=== PATIENT | male | born 1975 | race Caucasian/White ===

== ENCOUNTER 2018-12-18 15:35 | Emergency (ER) | payer OTHER ==
[~2018-12-18] VITALS: Ht 182.9 cm; Wt 131.5 kg
[2018-12-18] MEDS ORDERED: INVEGA3 MG PO (15:53)
[2018-12-18] MEDS ORDERED: METFORMIN HCL500 MG PO (15:53)
[2018-12-18] MEDS ORDERED: PRINIVIL20 MG PO (15:53)
[2018-12-18] MEDS ORDERED: LIPITOR 20 MG T20 M1 PO (15:54)
[2018-12-18] MEDS ORDERED: HYDROCHLOROTHIA25 M2 PO (15:54)
[2018-12-18 18:04] VITALS: BP 164/110
[2018-12-19 02:06] LABS: HEPATITIS B SURFACE AG Negative (Negative)
== END 2018-12-18 18:04 | disposition home or self-care (01) ==
LOC: M.ERS 15:35
PROVIDERS: Nurse Practitioner
DX: S69.80XA Other specified injuries of unspecified wrist, hand and finger(s), initial encounter (principal); I10 Essential (primary) hypertension; E78.5 Hyperlipidemia, unspecified; E11.9 Type 2 diabetes mellitus without complications; W46.1XXA Contact with contaminated hypodermic needle, initial encounter; Y92.89 Other specified places as the place of occurrence of the external cause; Y93.89 Activity, other specified; Y99.8 Other external cause status